=== PATIENT | female | born 1960 | race African-American/Black ===

== ENCOUNTER 2017-12-27 02:36 | Emergency (ER) | payer OTHER ==
[~2017-12-27] VITALS: Ht 172.7 cm; Wt 95.3 kg
[2017-12-27 02:45] VITALS: BP 149/71
[2017-12-27] MEDS ORDERED: CRESTOR5 MG PO (02:51)
[2017-12-27] MEDS ORDERED: AMLODIPINE BESY10 MG PO (02:51)
[2017-12-27] MEDS ORDERED: ASPIR 8181 MG PO (02:52)
[2017-12-27] MEDS ORDERED: NORCO 5-325 TA1 EACH PO (03:21)
== END 2017-12-27 03:44 | disposition home or self-care (01) ==
LOC: ER 02:36
DX: M25.562 Pain in left knee (principal); F17.210 Nicotine dependence, cigarettes, uncomplicated